=== PATIENT | female | born 1965 | race African-American/Black ===

== ENCOUNTER 2016-06-19 11:47 | Emergency (ER) | payer BC ==
[2016-06-19 10:43] LABS: BASOPHILS 0.1 %; BASOPHILS ABSOLUTE 0.01 10/3/uL (0.0-0.16); EOSINOPHILS 1.6 %; EOSINOPHILS ABSOLUTE 0.11 10/3/uL (0.0-0.53); HEMOGLOBIN 10.2 g/dL (12.0-16.0); IMMATURE GRANULOCYTES 0.1 %; IMMATURE GRANULOCYTES ABSOLUTE 0.01 10/3/uL (0.0-0.11); LYMPHOCYTES 18.7 %; LYMPHOCYTES ABSOLUTE 1.28 10/3/uL (0.67-4.30); MEAN CORPUS HGB CONC 32.3 g/dL (32.0-36.0); MEAN CORPUSCULAR HEMOGLOB 26.4 pg (26.0-34.0); MEAN CORPUSCULAR VOLUME 81.9 fL (80-100); MEAN PLATELET VOLUME 9.9 fL (9.2-13.0); MONOCYTES 12.6 %; MONOCYTES ABSOLUTE 0.86 10/3/uL (0.21-1.20); NEUTROPHILS 66.9 %; NEUTROPHILS ABSOLUTE 4.57 10/3/uL (2.02-8.40); RBC DISTRIBUTION WIDTH 13.9 % (12.0-16.0)
[2016-06-19 10:48] LABS: ER CBC TAT 0 Hrs 15 Mins; HEMATOCRIT 31.6 % (36.0-48.0); MANUAL DIFF NO %; PLATELET COUNT 388 10/3/uL (150-400); RED CELL COUNT 3.86 10/6/uL (4.0-5.6); WHITE BLOOD CELLS 6.8 10/3/uL (4.5-10.5)
[2016-06-19 10:55] LABS: INTERNATIONAL NORMAL RATI 1.9 UNITS (-); PARTIAL THROMBO TIME 32.6 SEC (22.5-37.2); PROTIME (NOT ORD) 21.5 SEC (12.0-14.5)
[2016-06-19 10:59] LABS: A/G RATIO 0.7 (0.7-1.9); ALBUMIN 3.5 G/DL (3.5-5.0); ALKALINE PHOSPHATASE 120 U/L (45-117); BUN (BLOOD UREA NITROGEN) 7 MG/DL (6-23); CALCIUM, SERUM 8.4 MG/DL (8.5-10.4); CHLORIDE, SERUM 104 MMOL/L (96-112); CO2 (CARBON DIOXIDE) 28 MMOL/L (24-34); CREATININE 1.05 MG/DL (0.55-1.02); GFR AFRICAN AMERICAN 71 ML/MIN (>=60); GFR NON AFRICAN AMERICAN 61 ML/MIN (>=60); GLUCOSE, SERUM 94 MG/DL (60-99); POTASSIUM, SERUM 3.3 MMOL/L (3.5-5.3); SGOT(AST) 22 U/L (5-40); SGPT(ALT) 50 U/L (5-65); SODIUM, SERUM 141 MMOL/L (135-148); TOTAL BILIRUBIN 1.2 MG/DL (0-1.2); TOTAL PROTEIN 8.5 G/DL (6.0-8.5)
[2016-06-19 11:04] LABS: INFLUENZA A SCREEN NEGATIVE (NEGATIVE); INFLUENZA B SCREEN NEGATIVE (NEGATIVE)
[~2016-06-19 11:47] MED LIST: ASA5GR PO; CORDARONE PO; COREG3 PO; COUMADIN4 MG PO; FOSAMAX70 MG PO; HALF81 PO; K-TABS10 MEQ PO; L40 PO; LOP25 PO; MAXIMUM D3 PO; NORCO1 TA1 PO; PRIN10 PO; PRIN2.5 PO; PROTONIX PO; SPIRO25 PO; TOPXL25 PO; XARELTO20 MG PO
== END 2016-06-19 11:58 | disposition home or self-care (01) ==
LOC: ER 11:47
PROVIDERS: Nurse Practitioner
DX: J06.9 Acute upper respiratory infection, unspecified (principal); K21.9 Gastro-esophageal reflux disease without esophagitis; Z79.82 Long term (current) use of aspirin; Z79.01 Long term (current) use of anticoagulants; Z79.899 Other long term (current) drug therapy
CPT/HCPCS: 71020; 80053; 85025; 85610; 85730; 87804; 99283